=== PATIENT | female | born 1955 | race African-American/Black ===

== ENCOUNTER 2016-10-01 06:04 | Emergency (ER) | payer BC, OTHER ==
[~2016-10-01] VITALS: Ht 170.2 cm; Wt 82.0 kg
[2016-10-01 07:30] VITALS: BP 137/76
[2016-10-01] MEDS ORDERED: MECLIZINE 25MG TABLET PO ONE (08:30)
[2016-10-01] MEDS ORDERED: ONDANSETRON HCL 4MG/2ML VIAL IV ONE (08:30)
== END 2016-10-01 08:00 | disposition left against medical advice (07) ==
LOC: ER 06:10
DX: R42 Dizziness and giddiness (principal); H54.7 Unspecified visual loss; Z88.6 Allergy status to analgesic agent; Z88.2 Allergy status to sulfonamides; Z88.8 Allergy status to other drugs, medicaments and biological substances; Z90.5 Acquired absence of kidney
CPT/HCPCS: 99283; C1893; Z7610

== ENCOUNTER 2021-02-17 00:16 | Emergency (ER) | payer BC, OTHER ==
[~2021-02-17] VITALS: Ht 170.2 cm; Wt 88.0 kg
[2021-02-17] MEDS ORDERED: FAMOTIDINE 20MG/2ML VIAL IV ONE (01:15)
[2021-02-17] MEDS ORDERED: DIPHENHYDRAMINE 25MG CAPSULE PO ONE (01:15)
[2021-02-17] MEDS ORDERED: METHYLPREDNISOLONE SOD SUCC 125 MG/2 ML VIAL IV ONE (01:15)
[2021-02-17] MEDS ORDERED: SODIUM CHLORIDE 0.9% 1,000 ML IV SCH (02:30)
[2021-02-17] MEDS ORDERED: DIPHENHYDRAMINE 50MG/ML VIAL IV SCH (02:30)
[2021-02-17 02:31] LABS: BASOPHILS % 0.4 % (0.0-2.0); EOSINOPHILS % 0.6 % (0.0-5.0); HEMATOCRIT. 37.4 % (36.0-48.0); HEMOGLOBIN. 12.5 g/dL (12.0-16.0); LYMPHOCYTES % 13.4 % (20.0-50.0); MEAN CORPUSCULAR VOLUME 89.6 fL (81.0-99.0); MEAN PLATELET VOLUME 7.5 fl (7.4-10.4); MONOCYTES % 5.5 % (2.0-8.0); NEUTROPHILS % 80.1 % (40.0-76.0); PLATELET 186 x1000/uL (130-400); RED BLOOD CELL COUNT 4.18 mill/uL (4.2-5.4); RED CELL DISTRIBUTION WIDTH 12.5 % (11.6-14.6)
[2021-02-17 02:38] LABS: CHLORIDE 109 mEq/L (98-107)
[2021-02-17] MEDS ORDERED: MED4 MT (03:00)
[2021-02-17] MEDS ORDERED: DIPH25TA62 MT (03:00)
[2021-02-17] MEDS ORDERED: FAMO-135 MT (03:00)
[2021-02-17] MEDS ORDERED: EPIN0.3P3 IM (03:00)
[2021-02-17 04:13] VITALS: BP 170/100
== END 2021-02-17 04:15 | disposition home or self-care (01) ==
LOC: ER 00:16
DX: T78.40XA Allergy, unspecified, initial encounter (principal); Z88.2 Allergy status to sulfonamides; Z88.5 Allergy status to narcotic agent; Z88.8 Allergy status to other drugs, medicaments and biological substances; Z91.048 Other nonmedicinal substance allergy status; Z79.899 Other long term (current) drug therapy; Z13.9 Encounter for screening, unspecified; X58.XXXA Exposure to other specified factors, initial encounter
CPT/HCPCS: 36415; 80048; 85025; 96361; 96374; 96375; 99284; J1200; J2930; J3490; Q0163

== ENCOUNTER 2021-06-27 11:42 | Inpatient (IN) | payer OTHER ==
[~2021-06-27] VITALS: Ht 170.2 cm; Wt 94.4 kg
[~2021-06-27 11:42] MED LIST: DIPH25TA62 MT; EPIN0.3P3 IM; FAMO-135 MT; MED4 MT
[2021-06-27] MEDS ORDERED: PREDNISONE 20MG TABLET PO ONE (12:00)
[2021-06-27] MEDS ORDERED: CETIRIZINE 10MG TABLET PO SCH (12:00)
[2021-06-27 12:55] LABS: BASOPHILS % 0.6 % (0.0-2.0); EOSINOPHILS % 2.4 % (0.0-5.0); HEMATOCRIT. 37.9 % (36.0-48.0); HEMOGLOBIN. 12.7 g/dL (12.0-16.0); LYMPHOCYTES % 21.4 % (20.0-50.0); MEAN CORPUSCULAR HEMOGLOBIN 29.8 pg (28.0-32.0); MEAN CORPUSCULAR VOLUME 88.7 fL (81.0-99.0); MEAN PLATELET VOLUME 7.5 fl (7.4-10.4); MONOCYTES % 7.6 % (2.0-8.0); PLATELET 202 x1000/uL (130-400); RED BLOOD CELL COUNT 4.28 mill/uL (4.2-5.4); RED CELL DISTRIBUTION WIDTH 12.9 % (11.6-14.6)
[2021-06-27] MEDS: FAMOTIDINE 20MG TABLET PO SCH (12:57)
[2021-06-27 13:03] LABS: CHLORIDE 107 mEq/L (98-107)
[2021-06-27] MEDS ORDERED: ACETAMINOPHEN 325MG TABLET PO ONE (15:00)
[2021-06-27 15:05] LABS: CHLORIDE 107 mEq/L (98-107)
[2021-06-27] MEDS ORDERED: KETOROLAC 15MG/ML VIAL IV ONE (16:45)
[2021-06-27] MEDS ORDERED: DIPHENHYDRAMINE 50MG/ML VIAL IV ONE (19:30)
[2021-06-27 22:15] VITALS: BP 161/83
[2021-06-27] MEDS ORDERED: DIPHENHYDRAMINE 50MG/ML VIAL IV PRN ×2 (23:15→23:45)
[2021-06-27] MEDS ORDERED: MELO-106 MT (23:20)
[2021-06-27] MEDS ORDERED: CLONIDINE 0.1MG TABLET PO PRN (23:45)
[2021-06-27] MEDS ORDERED: ACETAMINOPHEN 325MG TABLET PO PRN ×2 (23:45)
[2021-06-27] MEDS ORDERED: HYDRALAZINE 20MG/ML VIAL IV PRN (23:45)
[2021-06-27] MEDS ORDERED: ZOLPIDEM TARTRATE 5MG TABLET PO PRN (23:45)
[2021-06-27] MEDS ORDERED: GUAIFENESIN 200MG/10ML SUGAR FREE UDC PO PRN (23:45)
[2021-06-27] MEDS ORDERED: ONDANSETRON HCL 4MG/2ML INJ IV PRN (23:45)
[2021-06-28] VITALS: BP 130/79
[2021-06-28 04:00] VITALS: BP 137/86
[2021-06-28] MEDS ORDERED: SODIUM CHLORIDE 0.9% INJ 3ML FLUSH IVF SCH (06:00)
[2021-06-28 07:53] VITALS: BP 150/90
[2021-06-28] MEDS: MELOXICAM 7.5MG TABLET PO SCH ×2 (08:11)
[2021-06-28] MEDS ORDERED: DIPHENHYDRAMINE 50MG/ML VIAL IV PRN (09:45)
[2021-06-28 12:00] VITALS: BP 146/94
[2021-06-28] MEDS: FAMOTIDINE 20MG TABLET PO SCH (12:00)
[2021-06-29] MEDS ORDERED: MELOXICAM 15 MG TABLET PO SCH (09:00)
== END 2021-06-28 14:30 | disposition home or self-care (01) | DRG 916 ==
LOC: ER 11:42 → 8WST 16:53 → EDBEDREQ 16:58 → EDBEDREQTM 16:58 → ENRESERV 20:47
PROVIDERS: ADMIT Internal Medicine; ATTEND Internal Medicine
DX: T78.49XA Other allergy, initial encounter (principal); I10 Essential (primary) hypertension; M19.90 Unspecified osteoarthritis, unspecified site; T78.1XXA Other adverse food reactions, not elsewhere classified, initial encounter; X58.XXXA Exposure to other specified factors, initial encounter; Z85.528 Personal history of other malignant neoplasm of kidney; Z87.892 Personal history of anaphylaxis; Z90.5 Acquired absence of kidney; Z88.1 Allergy status to other antibiotic agents; Z88.5 Allergy status to narcotic agent; Z88.2 Allergy status to sulfonamides; Z88.8 Allergy status to other drugs, medicaments and biological substances; Z20.822 Contact with and (suspected) exposure to COVID-19
CPT/HCPCS: 36415; 71045; 80053; 83735; 83880; 84484; 85025; 87426; 93005; 93306; 99285; J0360; J1200; J1885; J7512

== ENCOUNTER 2021-07-10 17:43 | Emergency (ER) | payer OTHER ==
[~2021-07-10] VITALS: Ht 172.7 cm; Wt 91.0 kg
[~2021-07-10 17:43] MED LIST changes: +MELO-106 MT
[2021-07-10] MEDS ORDERED: DIPHENHYDRAMINE 50MG/ML VIAL IV ONE (18:00)
[2021-07-10] MEDS ORDERED: METHYLPREDNISOLONE SOD SUCC 125 MG/2 ML VIAL IV ONE (18:00)
[2021-07-10 18:55] LABS: BASOPHILS % 1.2 % (0.0-2.0); EOSINOPHILS % 3.8 % (0.0-5.0); HEMATOCRIT. 38.6 % (36.0-48.0); HEMOGLOBIN. 13.2 g/dL (12.0-16.0); LYMPHOCYTES % 43.8 % (20.0-50.0); MEAN CORPUSCULAR HEMOGLOBIN 30.6 pg (28.0-32.0); MEAN CORPUSCULAR VOLUME 89.6 fL (81.0-99.0); MEAN PLATELET VOLUME 8.8 fl (7.4-10.4); MONOCYTES % 7.4 % (2.0-8.0); NEUTROPHILS % 43.8 % (40.0-76.0); PLATELET 255 x1000/uL (130-400); RED BLOOD CELL COUNT 4.31 mill/uL (4.2-5.4); RED CELL DISTRIBUTION WIDTH 12.5 % (11.6-14.6)
[2021-07-10] MEDS ORDERED: DEXAMETHASONE 10 MG/ML VIAL IV ONE (19:15)
[2021-07-10 20:03] LABS: CHLORIDE 105 mEq/L (98-107)
[2021-07-10] MEDS ORDERED: NICARDIPINE 50 MG in SODIUM CHLORIDE 0.9% 230 ML IV STA (21:33)
[2021-07-10] MEDS ORDERED: SODIUM CHLORIDE 0.9% 1,000 ML IV ONE (21:45)
[2021-07-10] MEDS ORDERED: EPIN0.3P3 IM (23:05)
[2021-07-10] MEDS ORDERED: FAMO20TA8 MT (23:05)
[2021-07-10] MEDS ORDERED: P50 MT (23:05)
[2021-07-10 23:21] VITALS: BP 128/72
== END 2021-07-10 23:30 | disposition home or self-care (01) ==
LOC: ER 17:43
DX: T50.995A Adverse effect of other drugs, medicaments and biological substances, initial encounter (principal); Z88.0 Allergy status to penicillin; Z88.2 Allergy status to sulfonamides; Z88.8 Allergy status to other drugs, medicaments and biological substances; Y92.018 Other place in single-family (private) house as the place of occurrence of the external cause
CPT/HCPCS: 36415; 71045; 80053; 83880; 84484; 85025; 93005; 96361; 96374; 96375; 99285; J1100; J1200; J3490; J7030; J7050

== ENCOUNTER 2023-01-21 13:31 | Emergency (ER) | payer MEDICARE, OTHER ==
[~2023-01-21] VITALS: Ht 175.3 cm; Wt 88.0 kg
[~2023-01-21 13:31] MED LIST changes: +FAMO20TA8 MT; +P50 MT
[2023-01-21 13:42] VITALS: BP 136/82; PULSE 94; RESP 20; TEMP 98.3; O2SAT 98
[2023-01-21] MEDS ORDERED: LORA10TA7 MT (14:11)
[2023-01-21] MEDS ORDERED: MED4 MT (14:11)
[2023-01-21] MEDS ORDERED: DOXY100C5 MT (14:14)
== END 2023-01-21 15:14 | disposition home or self-care (01) ==
LOC: ER 14:13
DX: S40.862A Insect bite (nonvenomous) of left upper arm, initial encounter (principal); S40.861A Insect bite (nonvenomous) of right upper arm, initial encounter; S80.862A Insect bite (nonvenomous), left lower leg, initial encounter; S80.861A Insect bite (nonvenomous), right lower leg, initial encounter; W57.XXXA Bitten or stung by nonvenomous insect and other nonvenomous arthropods, initial encounter; Y93.89 Activity, other specified; Y92.89 Other specified places as the place of occurrence of the external cause; Y99.8 Other external cause status; Z88.2 Allergy status to sulfonamides; Z88.5 Allergy status to narcotic agent; Z88.8 Allergy status to other drugs, medicaments and biological substances; Z79.899 Other long term (current) drug therapy
CPT/HCPCS: 99283